=== PATIENT | male | born 1975 | race Caucasian/White ===

== ENCOUNTER → 2016-12-02 | Outpatient (CLI) | payer OTHER ==
[~2016-12-02] MED LIST: ACET-1256 PO; IBUP-1050 PO; MULT-506 PO; OMEP20CA59 PO
[2016-12-02 09:37] LABS: BASO % 0.3 %; BASO ABS # 0.01 K/uL (0-0.2); COMPLETE YES; EOS % 2.1 %; HEMATOCRIT 44.1 % (42-52); LYMPH % 35.4 %; LYMPH ABS # 1.38 K/uL (1.2-3.4); MEAN CELL VOLUME 87.8 fL (80-100); MEAN CORPUSCULAR HEMOGLOBIN 31.9 pg (25-34); MEAN CORPUSCULAR HGB CONC 36.3 g/dl (32-36); MONO % 8.5 %; NEUT % 53.7 %; PLATELET COUNT 177 K/uL (130-400); RED BLOOD COUNT 5.02 M/uL (4.7-6.1)
[2016-12-02 10:12] LABS: CHOLESTEROL/HDL RATIO 2.6
== END | disposition home or self-care (01) ==
LOC: C.LAB 07:19
PROVIDERS: ATTEND Family Medicine
DX: Z13.220 Encounter for screening for lipoid disorders (principal); Z13.1 Encounter for screening for diabetes mellitus; Z13.0 Encounter for screening for diseases of the blood and blood-forming organs and certain disorders involving the immune mechanism

== ENCOUNTER → 2017-08-16 | Day surgery (SDC) | payer OTHER ==
[2017-07-29 09:51] VITALS: BMI 22.0
[~2017-08-16] VITALS: Ht 180.3 cm; Wt 74.1 kg
[~2017-08-16] MED LIST changes: -ACET-1256 PO; -IBUP-1050 PO; +LIDOCAINE HCL 2% 2 ML VIAL (20MG/ML) ONE; +MIDAZOLAM HCL 1 MG/ML 2ML VIAL ONE; +ONDANSETRON INJ 2 MG/ML 2 ML VIAL ONE; +PROPOFOL IV EMULSION 10 MG/ML 20 ML VIAL IV ONE
[2017-08-16 12:17] VITALS: Ht 180.3 cm; Wt 74.1 kg
--- NOTE | 2017-08-16 13:48 | Endo History and Physical ---
History & Physical Date of Service: Aug 16, 2017. Chief Complaint: FAMILY HISTORY POLYPS Referring Physician: History of Present Illness 41 yo CM who presents for colonoscopy secondary to family history of colon polyps. Past Medical History Reflux Past Surgical History Hx Cardiac Surgery: No Hx Internal Defibrillator: No Hx Pacemaker: No Hx Abdominal Surgery: Yes (BLT INGUINAL HERNIA) Hx of Implantable Prosthesis: No Hx Post-Op Nausea and Vomiting: Yes (ONLY WITH WISDOM TEETH EXTRACTION) Hx Cancer Surgery: No Hx Thoracic Surgery: No Hx Orthopedic: Yes (ORIF LT ELBOW) Hx Urinary Tract Surgery: No Family History Colon CA, Polyp Social History Smoking Status: Never Smoker Hx Substance Use: No Hx Alcohol Use: Yes (2 DRINKS/DAY) Allergies Coded Allergies: Penicillins (Verified Allergy, Unknown, HIVES, 08/16/17) Sulfa Drugs (Verified Allergy, Unknown, RASH, 08/16/17) Current Medications Reported Home Medications Medications Dose Route/Sig Max Daily Dose Days Date Category Multivitamin (Multivitamins) Tab 1 Tablet PO DAILY 11/19/12 Reported Prilosec (Omeprazole) 20 Mg Capcr 20 Mg PO QAM 01/31/12 Reported Vital Signs Weight (Kilograms): 74.09 Height (Feet): 5 Height (Inches): 11 Date Time Temp Pulse Resp B/P (MAP) Pulse Ox O2 Delivery O2 Flow Rate FiO2 08/16/17 12:23 36.7 70 18 131/78 (95) 100 Room Air Physical Exam General Appearance: WD/WN, no apparent distress Respiratory/Chest: Auscultation: breath sounds normal Cardiovascular: Heart Auscultation: RRR Abdomen: Bowel Sounds: normal Inspection & Palpation: soft, non-distended, no tenderness, guarding & rebound Assessment and Plan Assessment: 41 yo CM who presents for colonoscopy secondary to family history of colon polyps. Plan: Proceed with colonoscopy.
--- NOTE | 2017-08-16 14:09 | Discharge Instructions ---
Endoscopy Patient Instructions Date / Procedure(s) Performed Aug 16, 2017. Colonoscopy Allergy Information Coded Allergies: Penicillins (Verified Allergy, Unknown, HIVES, 08/16/17) Sulfa Drugs (Verified Allergy, Unknown, RASH, 08/16/17) Discharge Date / Findings Aug 16, 2017. Rectal polyp Medication Instructions OK to resume all medications today as prescribed Reported Home Medications Medications Dose Route/Sig Max Daily Dose Days Date Category Multivitamin (Multivitamins) Tab 1 Tablet PO DAILY 11/19/12 Reported Prilosec (Omeprazole) 20 Mg Capcr 20 Mg PO QAM 01/31/12 Reported Provider Instructions Activity Restrictions - No exercising or heavy lifting for 24 hours. - Do not drink alcohol the day of the procedure. - Do not drive a car or operate machinery until the day after the procedure. - Do not make any important decisions or sign important papers in 24 hours after the procedure. Following Day: - Return to full activity which may include returning to work/school. Diet Start your diet with liquids and light foods (jello, soup, juice, toast). Then eat your usual diet if not nauseated. Treatment For Common After Affects For mild abdominal pain, bloating, or excessive gas: - Rest - Eat lightly - Lie on right side Follow-Up Information Follow-up with as scheduled Anesthesia Information What You Should Know You have had a procedure that required some medicine to reduce anxiety and discomfort. This treatment is called moderate sedation. After receiving the treatment, you may be sleepy, but you will be able to breathe on your own. The effects of the treatment may last for several hours. Follow these instructions along with Activity/Diet recommendations noted above: * Do NOT do anything where dizziness or clumsiness would be dangerous. * Rest quietly at home today, then you can be up and about tomorrow. * Have a responsible person stay with you the rest of today. * You may have had an I.V. today. If so, you may take the dressing off later today. Recommendations Call your doctor if: * Trouble breathing * Continuous vomiting for more than 24 hours * Temperature above 101 degrees * Severe abdominal pain or bloating * Pain not relieved by pain medicine ordered * There is increased drainage or redness from any incision * A large amount of rectal bleeding greater than 2-3 tablespoons. (If you had a polyp/s removed or have hemorrhoids, a small amount of blood - from the rectum is to be expected.) * You have any unanswered questions or concerns. IN THE EVENT OF A SERIOUS EMERGENCY, GO TO THE NEAREST EMERGENCY ROOM Your discharge instructions were prepared by provider Emigdio Palencia. Patient Instructions Signature Page Jonathan Perez Patient (or Guardian) Signature/Date: I have read and understand the instructions given to me by my caregivers. Caregiver/RN/Doctor Signature/Date: The above-named patient and/or guardian has received patient instructions on this date. + Original Patient Signature Page (only) stays with chart. Please make copy for patient.
--- NOTE | 2017-08-16 14:12 | GI REPORT ---
Procedure Date: 08/16/2017 1:16 PM Procedure: Colonoscopy Indications: Family history of colonic polyps in a first-degree relative Medicines: Monitored Anesthesia Care Complications: No immediate complications. Estimated Blood Loss: Estimated blood loss: none. Procedure: Pre-Anesthesia Assessment: - Prior to the procedure, a History and Physical was performed, and patient medications and allergies were reviewed. The patient's tolerance of previous anesthesia was also reviewed. The risks and benefits of the procedure and the sedation options and risks were discussed with the patient. All questions were answered, and informed consent was obtained. Prior Anticoagulants: The patient has taken no previous anticoagulant or antiplatelet agents. ASA Grade Assessment: II - A patient with mild systemic disease. After reviewing the risks and benefits, the patient was deemed in satisfactory condition to undergo the procedure. After I obtained informed consent, the scope was passed under direct vision. Throughout the procedure, the patient's blood pressure, pulse, and oxygen saturations were monitored continuously. The scope was introduced through the anus and advanced to the terminal ileum. The colonoscopy was performed without difficulty. The patient tolerated the procedure well. The quality of the bowel preparation was good. The terminal ileum, ileocecal valve, appendiceal orifice, and rectum were photographed. Findings: The perianal and digital rectal examinations were normal. A 4 mm polyp was found in the rectum. The polyp was sessile. The polyp was removed with a cold snare. Resection and retrieval were complete. Impression: - One 4 mm polyp in the rectum, removed with a cold snare. Resected and retrieved. Recommendation: - Resume previous diet. - Continue present medications. - Repeat colonoscopy for surveillance based on pathology results. - Return to primary care physician as previously scheduled. Emigdio Palencia, 08/16/2017 2:11:43 PM This report has been signed electronically. Note Initiated On: 08/16/2017 1:16 PM I attest to the content of the Intraoperative Record and orders documented therein, exceptions below
[2017-08-16 14:45] VITALS: BP 107/64; PULSE 50; O2SAT 99
--- NOTE | 2017-08-16 14:46 | Anesthesiology Progress Note ---
Anesthesia Post Op Note Date & Time Aug 16, 2017 at 14:46 Vital Signs Vital Signs Past 12 Hours Date Time Temp Pulse Resp B/P (MAP) Pulse Ox O2 Delivery O2 Flow Rate FiO2 08/16/17 14:30 50 16 104/66 (79) 100 Room Air 08/16/17 14:14 59 16 102/60 (74) 98 Room Air 08/16/17 12:23 36.7 70 18 131/78 (95) 100 Room Air Notes Mental Status: alert / awake / arousable, participated in evaluation Pt Amnestic to Procedure: Yes Nausea / Vomiting: adequately controlled Pain: adequately controlled Airway Patency, RR, SpO2: stable & adequate BP & HR: stable & adequate Hydration State: stable & adequate Anesthetic Complications: no major complications apparent
== END | disposition home or self-care (01) ==
LOC: C.GI 12:05
PROVIDERS: ATTEND Internal Medicine
DX: Z12.11 Encounter for screening for malignant neoplasm of colon (principal); Z83.71 Family history of colonic polyps; Z88.0 Allergy status to penicillin; Z88.2 Allergy status to sulfonamides; K62.1 Rectal polyp

== ENCOUNTER → 2017-10-05 | Outpatient (CLI) | payer OTHER ==
[~2017-10-05] MED LIST changes: -LIDOCAINE HCL 2% 2 ML VIAL (20MG/ML) ONE; -MIDAZOLAM HCL 1 MG/ML 2ML VIAL ONE; -ONDANSETRON INJ 2 MG/ML 2 ML VIAL ONE; -PROPOFOL IV EMULSION 10 MG/ML 20 ML VIAL IV ONE
--- NOTE | 2017-10-05 15:00 | DIAGNOSTIC IMAGING REPORT ---
ULTRASOUND RIGHT GROIN NONVASCULAR CLINICAL HISTORY: Lymphadenopathy. COMPARISON STUDY: Abdominal CT dated 11/21/2014. FINDINGS: Real-time, grayscale, and color flow sonography of the right groin is performed. There is no sonographic evidence of right inguinal hernia. No hernia could be elicited by having the patient perform the Valsalva maneuver. There are small benign-appearing right inguinal lymph nodes identified. The largest measures up to 5 mm in short axis. No concerning mass lesion or fluid collection is identified. IMPRESSION: 1. There is no sonographic evidence of right inguinal hernia. 2. Small benign-appearing right inguinal lymph nodes are incidentally noted. Electronically signed by: Caio Pak M.D. 10/05/2017 2:59 PM Dictated Date/Time: 10/05/2017 2:57 PM
== END | disposition home or self-care (01) ==
LOC: C.ULTR 14:12
PROVIDERS: ATTEND Internal Medicine
DX: R59.0 Localized enlarged lymph nodes (principal)

== ENCOUNTER → 2017-12-21 | Outpatient (CLI) | payer OTHER ==
[2017-12-21 09:42] LABS: BASO ABS # 0.04 K/uL (0-0.2); EOS % 1.7 %; EOS ABS # 0.07 K/uL (0-0.5); HEMOGLOBIN 15.2 g/dL (14.0-18.0); IG# 0.01 K/uL (0.00-0.02); LYMPH % 31.1 %; LYMPH ABS # 1.26 K/uL (1.2-3.4); MEAN CELL VOLUME 89.1 fL (80-100); MEAN CORPUSCULAR HEMOGLOBIN 30.8 pg (25-34); MEAN CORPUSCULAR HGB CONC 34.5 g/dl (32-36); MEAN PLATELET VOLUME 10.6 fL (7.4-10.4); MONO % 8.6 %; MONO ABS # 0.35 K/uL (0.11-0.59); NEUT % 57.4 %; NEUT ABS # 2.32 K/uL (1.4-6.5); PLATELET COUNT 209 K/uL (130-400); RED CELL DISTRIBUTION WIDTH CV 13.4 % (11.5-14.5); RED CELL DISTRIBUTION WIDTH SD 43.4 fL (36.4-46.3); WHITE BLOOD COUNT 4.05 K/uL (4.8-10.8)
[2017-12-21 10:17] LABS: BLOOD UREA NITROGEN 17 mg/dl (7-18); CREATININE 1.03 mg/dl (0.60-1.40); GLUCOSE 82 mg/dl (70-99)
[2017-12-21 10:18] LABS: ALBUMIN 4.2 gm/dl (3.4-5.0); ALT/SGPT 46 U/L (12-78); AST/SGOT 40 U/L (15-37); CALCIUM 8.9 mg/dl (8.5-10.1); CARBON DIOXIDE 30 mmol/L (21-32); CHOLESTEROL 174 mg/dl (0-200); SODIUM 140 mmol/L (136-145)
[2017-12-21 10:20] LABS: ALKALINE PHOSPHATASE 64 U/L (45-117); LDL CHOLESTEROL CALCULATED 95 mg/dl; TOTAL PROTEIN 7.4 gm/dl (6.4-8.2)
== END | disposition home or self-care (01) ==
LOC: C.LAB 07:13
PROVIDERS: ATTEND Internal Medicine
DX: Z13.1 Encounter for screening for diabetes mellitus (principal); K63.5 Polyp of colon; Z13.220 Encounter for screening for lipoid disorders

== ENCOUNTER → 2018-01-18 | Outpatient (CLI) | payer OTHER ==
[2018-01-18 09:58] LABS: TOTAL PROTEIN 7.4 gm/dl (6.4-8.2)
== END | disposition home or self-care (01) ==
LOC: C.LAB 07:09
PROVIDERS: ATTEND Internal Medicine
DX: Z13.1 Encounter for screening for diabetes mellitus (principal)

== ENCOUNTER 2024-01-08 19:44 | Observation (INO) ==
--- NOTE | 2024-01-08 20:13 | Emergency Department Note ---
Impression & Plan Chest pain, Acute left-sided back pain, Anticoagulated ED Provider Note NAME: NELSY GA AGE: 48 SEX: Male INFORMANT: Patient ED PROVIDER(S): Jeovany Quiles MD CHIEF COMPLAINT: Chest pain PLAN: Disposition: Admitted Outpatient prescription management: none Referral: None MEDICAL DECISION MAKING: Patient presented because of chest and back pain. History was concerning for upper extremity DVT. Patient to started anticoagulation. IV was established. ECG was performed. CT imaging of the chest ordered. The ECG did not show any ischemia. The CT of the chest with contrast did not reveal any evidence of pulmonary embolus, pneumothorax, or dissection. Patient's CBC and chemistry panels were unremarkable. Cardiac troponin was within normal limits. Patient did request something mild for discomfort and was given a dose of IV Toradol. He is currently doing well and hemodynamically stable. In light of the recent events, symptoms that he had prior and the chest and back pain tonight I discussed the option for further management in the hospital. Patient was comfortable with the plan. Consultation was made with Dr. Norman Diallo of the [facility] service. Patient was evaluated in the ER for further management. Care/management discussed with: dairy department manager Level of care consideration(s): After review of the information above and other included data, I feel the patient requires escalation of care to admission. Triage Nursing notes: reviewed and agree them. Vital Signs: reviewed and remarkable for mild hypertension Additional History obtained from: none Chronic Medical/Social Conditions affecting care: Anticoagulation, DVT Prior/ Outside/ External records reviewed: Prior ED visit records reviewed as summarized below Differential Diagnosis: Cardiac ischemia, aortic dissection, pulmonary embolism, pneumothorax, pneumonia, pericarditis, myocarditis, esophageal rupture, GERD, cholecystitis, pancreatitis, musculoskeletal, as well as other pathologies. Diagnostics, independently interpreted by me: ECG: Twelve-lead ECG reveals a normal sinus rhythm with sinus arrhythmia at 74 bpm. Left axis deviation and right bundle branch block. No ST elevation when compared to 01/04/2024 T wave inversion in V3 is more prominent otherwise no significant change. This T wave inversion morphology was seen in May 2022 Cardiac Monitoring: Cardiac monitoring ordered by me: The patient was placed on continuous cardiac monitoring and observed. It revealed a normal sinus rhythm at 71 beats per minute without ectopy or evidence of dysrhythmia. Medical decision rules: none Imaging studies: CT scan of the chest reveals no pneumothorax or significant pulmonary embolus. I refer you to the EMR for further details. HPI: 48 year old Male arrives for evaluation of chest pain and left-sided back pain. This started early this afternoon, lasted for about 20 minutes, resolved, and then returned this evening. Patient was recently in the emergency department 2 weeks ago for left right leg pain. Ultrasound imaging was negative at that time. He also had a negative Lyme test. Patient attributed the leg discomfort to prolonged sitting and his varicosities. Patient then came back to the emergency department 4 days ago due to swelling and discomfort in the left upper extremity and left neck of which originated from the site where he had an IV. He was diagnosed with a left upper extremity DVT and placed on Eliquis. Today he was going about his normal daily activities and then developed sharp pain in the left upper back. This lasted over half an hour. Patient then started to get chest pain. He denied other associated symptoms. Patient states 2 weeks ago he was sitting for a long time at a track meet. The next day he was developed the pain in the right calf. He also noted having a presyncopal like episode that evening stating that he just did not feel well. Denies any recent flulike symptoms. Pt denies LOC, headache, fevers, chills, diaphoresis, visual changes, neck pain, chest pain, breathing difficulties, nausea, vomiting, abdominal pain, melena, hematochezia, urinary symptoms, numbness, weakness, lymphadenopathy, rash, or other complaints. PAST MEDICAL HISTORY: See Below, hyperlipidemia, GERD, DVT PAST SURGICAL HISTORY: See Below, hernia repair SOCIAL HISTORY: See Below, employed as a nurse. . HOME MEDICATIONS: See Below ALLERGIES: See Below VITALS: See Below PHYSICAL EXAMINATION: GENERAL: Awake, alert, uncomfortable-appearing, in no distress HENT: Normocephalic, atraumatic. Oropharynx unremarkable. EYES: Normal conjunctiva. Sclera non-icteric. NECK: Inspection normal. Non-tender. Supple. No nuchal rigidity. FROM. No masses. RESPIRATORY: Clear to auscultation. No wheezes. No rales. Normal respiratory effort. CARDIAC: Normal rate. Normal rhythm. No murmurs. No rubs. Extremities warm and well perfused. Pulses equal. No JVD. GI: Soft, non-distended. No tenderness to palpation. No rebound or guarding. No masses. RECTAL: Deferred. MUSCULOSKELETAL: Atraumatic. Chest examination reveals no tenderness. The back is symmetrical on inspection without obvious abnormality. There is no CVA tenderness to palpation. No joint edema. LOWER EXTREMITIES: Calves are equal size bilaterally and non-tender. No edema. No discoloration. NEURO: Normal sensorium. No sensory or motor deficits noted. SKIN: No rash or jaundice noted. PROCEDURES: none CRITICAL CARE: none OBSERVATION NOTE: none Past Med/Surg History Medical History History of COVID-19 04/01/22>SYMPTOMS RESOLVED Hyperplastic colon polyp (08/16/17) hx GERD (gastroesophageal reflux disease) Surgical History History of surgery on arm LEFT ULNAR NERVE RELEASE Nausea and vomiting after administration of anesthetic agent History of wisdom tooth extraction History of bilateral inguinal hernia repair History of open reduction and internal fixation (ORIF) procedure Lt elbow History of esophagogastroduodenoscopy (EGD) History of colonoscopy most recent fall 2021 Family History Grandfather (Paternal) Family hx of colon cancer Father Family hx colonic polyps Grandmother Breast cancer Grandfather Diabetes Colorectal cancer Hypertension Other No family history of adverse response to anesthesia Denies family history of Ovarian cancer Prostate cancer Myocardial infarction Social History Smoking Status: Never smoker Second Hand Exposure: No; Do You Dip or Chew Tobacco: No; Hx Alcohol Use: Yes Alcohol type: beer, wine and hard liquor Hx Substance Use: No Preferred Language: Sammarinese Communication Ability: Effective Visual Impairment: No Limitations Hearing Ability: Normal International Guest Coordinator Required: No Beliefs That Will Affect Care: None marital status: Current Living Situation: Spouse Current Living Situation Comment: Lives at home with current occupational status: employed Other Information That Helps Us Care for You: No Feels Safe at Home: Yes Safety Concerns: Feels Safe At This Time Childhood Exposure to Second-Hand Smoke: No Dental Care, Regularly: Yes Physical Activity Frequency: 3-4 Times per Week Seatbelt Use: always Sunscreen Use: Yes Assistive Devices: None Allergies Allergies Allergy/AdvReac Type Severity Reaction Status Date / Time ciprofloxacin Allergy Intermediate Rash Verified 01/08/24 22:01 Penicillins Allergy Intermediate HIVES Verified 01/08/24 22:01 Sulfa (Sulfonamide Allergy Intermediate RASH Verified 01/08/24 22:01 Antibiotics) sulfamethoxazole Allergy Intermediate Rash Verified 01/08/24 22:01 [From Bactrim] trimethoprim [From Bactrim] Allergy Intermediate Rash Verified 01/08/24 22:01 levofloxacin [From Levaquin] AdvReac Intermediate Palpitation Verified 01/08/24 22:01 s Home Meds Home Medications Medication Instructions Recorded Confirmed multivitamin 1 tab PO QPM 10/30/21 01/08/24 famotidine 20 mg tablet (Pepcid) 20 mg PO DAILY PRN 08/26/23 01/08/24 HEARTBURN/INDIGESTION ibuprofen 200 mg tablet 600 mg PO Q6H PRN Pain 01/04/24 01/08/24 Previous Rx's Medication Instructions Recorded lansoprazole 30 mg capsule,delayed 30 mg PO QAM #90 caps 10/25/23 release apixaban 5 mg tablet (Eliquis) See Rx Instructions .Route 01/04/24 .COMPLEX #74 tabs Results & Data (ED) Vital Signs Vital Signs - 24 hr 01/08/24 19:46 01/08/24 19:51 01/08/24 20:00 Temperature 36.6 C Temperature Source Temporal Artery Scan Pulse Rate 84 75 75 Pulse Rate from SpO2 Sensor 74 Respiratory Rate 18 17 Respiratory Effort / Characteristics Non-Labored Respiratory Depth Normal Respiratory Pattern Regular Blood Pressure 156/96 H 134/97 Blood Pressure Mean 116 109 Pulse Oximetry 100 100 Oxygen Delivery Method Room Air Room Air Sepsis Recent Fever Within 48 Hours No Sepsis New/Unexplained Change in Mental Status N/A Sepsis Action Taken by Nursing No Action Required 01/08/24 20:22 01/08/24 21:00 01/08/24 22:00 Temperature Temperature Source Pulse Rate 69 60 56 L Pulse Rate from SpO2 Sensor 68 58 L 57 L Respiratory Rate 13 17 18 Respiratory Effort / Characteristics Respiratory Depth Respiratory Pattern Blood Pressure 131/86 127/81 131/88 Blood Pressure Mean 101 96 102 Pulse Oximetry 100 100 100 Oxygen Delivery Method Room Air Room Air Room Air Sepsis Recent Fever Within 48 Hours Sepsis New/Unexplained Change in Mental Status Sepsis Action Taken by Nursing Laboratory Data 01/08/24 20:02 01/08/24 20:02 Lab Results 01/08/24 Range/Units 20:02 WBC 6.38 (4.8-10.8) K/ul RBC 5.07 (4.70-6.10) M/uL Hgb 15.9 (14.0-18.0) g/dl Hct 44.2 (42.0-52.0) % MCV 87.2 (80.0-100.0) fL MCH 31.4 (25.0-34.0) pg MCHC 36.0 (32.0-36.0) g/dL RDW Std Deviation 39.6 (36.4-46.3) fL RDW Coeff of Chema 12.5 (11.5-14.5) % Plt Count 247 (130-400) K/uL MPV 10.3 (9.4-12.4) fL Immature Gran % (Auto) 0.2 % Neut % (Auto) 67.4 % Lymph % (Auto) 25.2 % Clinton % (Auto) 5.8 % Eos % (Auto) 0.8 % Baso % (Auto) 0.6 % Neut # (Auto) 4.30 (1.40-6.50) K/uL Lymph # (Auto) 1.61 (1.20-3.40) K/uL Clinton # (Auto) 0.37 (0.11-0.59) K/uL Eos # (Auto) 0.05 (0.00-0.50) K/uL Baso # (Auto) 0.04 (0.00-0.20) K/uL Immature Gran # (Auto) 0.01 (0.01-0.20) K/uL PT 11.3 (9.0-12.0) Seconds INR 1.0 (0.9-1.1) APTT 29 (21-31) Seconds PTT Ratio 1.1 Sodium 138 (136-145) mmol/L Potassium 3.7 (3.5-5.1) mmol/L Chloride 102 (98-107) mmol/L Carbon Dioxide 28 (21-32) mmol/L Anion Gap 8 (3-11) BUN 13 (6-23) mg/dl Creatinine 1.02 (0.6-1.4) mg/dl Est Cr Clr Drug Dosing 91.4 ml/min Est GFR ( Amer) 100.3 ml/min Est GFR (Non-Af Amer) 86.5 ml/min BUN/Creatinine Ratio 12.7 (10-20) Glucose 125 H (70-99(Fasting)) mg/dl Calcium 10.3 (8.6-10.3) mg/dl Magnesium 1.8 (1.7-2.4) mg/dl Total Bilirubin 1.3 H (0.2-1.0) mg/dl AST 20 (13-39) U/L ALT 27 (7-52) U/L Alkaline Phosphatase 66 (34-104) U/L Troponin I High Sens 3.4 (0-20) pg/ml Total Protein 7.5 (6.0-8.3) gm/dl Albumin 4.8 (3.4-5.0) gm/dl Globulin 2.7 (2.5-4.0) gm/dl Albumin/Globulin Ratio 1.8 (0.9-2) Lipase 20 (11-82) U/L Administered Medications Sucralfate (Sucralfate 1 Gm Tab) 1 gm PO ACHS MUNIRA Stop: 02/07/24 23:40 Last Admin: 01/08/24 23:57 Dose: 1 gm Documented By: TAMIKO Discontinued Medications Aspirin (Aspirin Chew 324 Mg) 324 mg PO NOW STA Stop: 01/08/24 21:33 Last Admin: 01/08/24 21:39 Dose: 324 mg Documented By: VINNY Ioversol (Optiray 320 125ml) 115 ml IV ONCE ONE Stop: 01/08/24 20:19 Last Admin: 01/08/24 20:19 Dose: 115 ml Documented By: NELSON Ketorolac Tromethamine (Ketorolac Tromethamine 15 Mg/Ml Vial) 10 mg IV NOW ONE Stop: 01/08/24 21:09 Last Admin: 01/08/24 21:11 Dose: 10 mg Documented By: VINNY Imaging Data Radiologist's Impression: Chest CTA 01/08/24 20:03 CT angio chest PE protocol CLINICAL HISTORY: chest and left back pain, recent LUE DVT by US,?PE TECHNIQUE: Multidetector row helical CT of the chest was performed with angiographic protocol. Coronal and sagittal reformations were obtained. Coronal and sagittal MIPS were obtained from the axial data set and were submitted for review. Automated dose lowering techniques and/or adjustment according to patient size were utilized for this exam. CT DOSE: 518.2 mGy.cm Comparison: Comparison is made to CT chest 07/14/2009 FINDINGS: Lungs and pleura: Normal. Heart and pericardium: Heart size is normal. No pericardial effusion. Vessels: No evidence of pulmonary embolism. Mediastinum and juli: Unremarkable. Chest wall and lower neck: Gynecomastia is noted bilaterally. Abdomen: Unremarkable. Bones: Degenerative changes in the thoracic spine. IMPRESSION: No acute abnormality and in particular no evidence of pulmonary embolus. ACT 112: Negative or not required by law. Electronically signed by: Marty Layton M.D. 01/08/2024 8:30 PM Discharge Plan Visit Data Chief Complaint: Chest Pain Stated Complaint: CHEST AND BACK PAIN ED Provider: Jeovany Quiles Discharge Problem: Chest pain, Acute left-sided back pain, Anticoagulated Patient Disposition: Admitted As Inpatient Discharge Instructions Interventions: ED Discharge Assessment Last Done: 01/08/24 23:23
[2024-01-08] MEDS: OPTIRAY 320 125ml IV ONE (20:19)
[2024-01-08 20:28] LABS: Basophils # (auto) 0.04 K/uL (0.00-0.20); Basophils % (auto) 0.6 %; Eosinophils # (auto) 0.05 K/uL (0.00-0.50); Eosinophils % (auto) 0.8 %; Hematocrit (blood only) 44.2 % (42.0-52.0); Hemoglobin 15.9 g/dl (14.0-18.0); Immature Granulocytes # (auto) 0.01 K/uL (0.01-0.20); Immature Granulocytes % (auto) 0.2 %; Lymphocytes # (auto) 1.61 K/uL (1.20-3.40); Lymphocytes % (auto) 25.2 %; Mean Corpuscular Hemoglobin 31.4 pg (25.0-34.0); Mean Corpuscular Volume 87.2 fL (80.0-100.0); Mean Platelet Volume 10.3 fL (9.4-12.4); Monocytes # (auto) 0.37 K/uL (0.11-0.59); Monocytes % (auto) 5.8 %; Neutrophils % (auto) 67.4 %; Platelet Count 247 K/uL (130-400); RDW Coefficient of Variation 12.5 % (11.5-14.5); RDW Standard Deviation 39.6 fL (36.4-46.3); Red Blood Count 5.07 M/uL (4.70-6.10); White Blood Count 6.38 K/ul (4.8-10.8)
[2024-01-08 20:30] LABS: Partial Thromboplastin Ratio 1.1; Partial Thromboplastin Time 29 Seconds (21-31); Prothrombin Time 11.3 Seconds (9.0-12.0)
--- NOTE | 2024-01-08 20:32 | CT Scan Report ---
CT angio chest PE protocol CLINICAL HISTORY: chest and left back pain, recent LUE DVT by US,?PE TECHNIQUE: Multidetector row helical CT of the chest was performed with angiographic protocol. Moise l and sagittal reformations were obtained. Coronal and sagittal MIPS were obtained from the axial jyoti a set and were submitted for review. Automated dose lowering techniques and/or adjustment according to patient size were utilized for this exam. CT DOSE: 518.2 mGy.cm Comparison: Comparison is made to CT chest 07/14/2009 FINDINGS: Lungs and pleura: Normal. Heart and pericardium: Heart size is normal. No pericardial effusion. Vessels: No evidence of pulmonary embolism. Mediastinum and juli: Unremarkable. Chest wall and lower neck: Gynecomastia is noted bilaterally. Abdomen: Unremarkable. Bones: Degenerative changes in the thoracic spine. IMPRESSION: No acute abnormality and in particular no evidence of pulmonary embolus. ACT 112: Negative or not required by law. Electronically signed by: Marty Layton M.D. 01/08/2024 8:30 PM
[2024-01-08 20:42] LABS: Albumin Globulin Ratio 1.8 (0.9-2); Albumin Level 4.8 gm/dl (3.4-5.0); BUN Creatinine Ratio 12.7 (10-20); Bilirubin,Total 1.3 mg/dl (0.2-1.0); Calcium 10.3 mg/dl (8.6-10.3); Creatinine Clr Calc Pharmacy 91.4 ml/min; Est GFR (African American) 100.3 ml/min; Est GFR (Non-African American) 86.5 ml/min; Globulin 2.7 gm/dl (2.5-4.0); Potassium 3.7 mmol/L (3.5-5.1); Total Protein 7.5 gm/dl (6.0-8.3)
[2024-01-08 20:48] LABS: Troponin I High Sensitivity 3.4 pg/ml (0-20)
[2024-01-08] MEDS: KETOROLAC TROMETHAMINE 15 MG/ML VIAL IV ONE (21:11)
[2024-01-08] MEDS: ASPIRIN CHEW 324 MG PO STA (21:39)
--- NOTE | 2024-01-08 22:11 | History & Physical Report ---
"Date of Service January 08, 2024 Assessment & Plan (1) Acute left-sided back pain: (2) Chest pain: (3) DVT (deep venous thrombosis): (4) GERD (gastroesophageal reflux disease): (5) Anticoagulated: (6) Pre-syncope: Plan Chest Pain | Current Left UE DVT -New onset chest pain and left sided upper back pain -Hemodynamically stable, no chest pain at present after receiving Toradol -Troponin of 3.4 on arrival, will order one additional repeat troponin -CTA chest reassuring, no evidence of PE. EKG without acute ST abnormalities. -Considering several recent episodes of presyncope, will order echocardiogram -Ideally would obtain stress echo, however may not be available on the weekend -Continue with Eliquis for UE DVT. No prior DVTs, but due to IV placement and subsequent pain in same arm prior to DVT could be secondary to trauma from venous access. -Fortunately workup at this time is reassuring and suspect that his presenting chest pain/back pain may not be cardiac in nature -Admit for observation and monitor on telemetry -Will repeat CBC, BMP, magnesium level in a.m. Gastroesophageal Reflux -Continue PPI and famotidine PRN -Will restart Carafate -With his history of ongoing GERD leading to esophagitis, could consider referr ed pain from gastritis as possible factor in his presenting symptoms Admit to telemetry for observation VTE Prophylaxis: Eliquis Diet: Regular Code Status: Full Code History of Present Illness Primary Care Provider: Shan Ward DO Jonathan Perez is a 48 year-old male with a past medical history of GERD, hyperlipidemia, varicose veins who presented to the ED for chest pain. He was seen in the ED on 12/24 for lower extremity pain- he endorses that he will have some LE/calf pain at baseline due to his varicose veins although this pain seemed worse/lasted longer which was what prompted his visit to the ED. Venous duplex on 12/24 was negative for lower extremity DVT. Over one week later, Mr. Perez presented back to the ED (January 03) for ongoing left arm pain and UE swelling after having an IV placed in the same arm at his prior ED visit. During this visit, he had a venous duplex of his left upper extremity which did identify a DVT and he was started on anticoagulation with Eliquis. Since January 03, he has been taking Eliquis as prescribed. Today, January 07, Mr. Perez started experiencing some sharp upper back pain/between his shoulder blades around noon which eventually went away. Several hours later he began to experience sharp centralized chest pain which radiated to his back in the same location as before. However this pain did not go away and he decided to go to the ED. He denies any shortness of breath in association with the chest pain. He endorses several episodes of presyncope in the past several weeks, but has not had any syncopal events. He has no reported blood clots prior to his current DVT. Mr. Perez has a longstanding history of GERD and most recently had an EGD in July 2023 which showed evidence of gastritis/esophagitis. He reports being on PPIs for 10+ years, is currently on lansoprazole and famotidine PRN. He was tapered off of Carafate in August. No other recent changes reported to his home medications. ED Course: -CTA chest -EKG, troponin, CBC, CMP Allergies Allergy/AdvReac Type Severity Reaction Status Date / Time ciprofloxacin Allergy Intermediate Rash Verified 01/08/24 22:01 Penicillins Allergy Intermediate HIVES Verified 01/08/24 22:01 Sulfa (Sulfonamide Allergy Intermediate RASH Verified 01/08/24 22:01 Antibiotics) sulfamethoxazole Allergy Intermediate Rash Verified 01/08/24 22:01 [From Bactrim] trimethoprim [From Bactrim] Allergy Intermediate Rash Verified 01/08/24 22:01 levofloxacin [From Levaquin] AdvReac Intermediate Palpitation Verified 01/08/24 22:01 s Home Medications Medication Instructions Recorded Confirmed Type multivitamin 1 tab PO QPM 10/30/21 01/08/24 History famotidine 20 mg tablet (Pepcid) 20 mg PO DAILY PRN 08/26/23 01/08/24 History HEARTBURN/INDIGESTION lansoprazole 30 mg capsule,delayed 30 mg PO QAM #90 caps 10/25/23 01/08/24 Rx release apixaban 5 mg tablet (Eliquis) See Rx Instructions .Route 01/04/24 01/08/24 Rx .COMPLEX #74 tabs ibuprofen 200 mg tablet 600 mg PO Q6H PRN Pain 01/04/24 01/08/24 History Past Med/Surg History Medical History History of COVID-19 04/01/22>SYMPTOMS RESOLVED Hyperplastic colon polyp (08/16/17) hx GERD (gastroesophageal reflux disease) Surgical History History of surgery on arm LEFT ULNAR NERVE RELEASE Nausea and vomiting after administration of anesthetic agent History of wisdom tooth extraction History of bilateral inguinal hernia repair History of open reduction and internal fixation (ORIF) procedure Lt elbow History of esophagogastroduodenoscopy (EGD) History of colonoscopy most recent fall 2021 Family History Grandfather (Paternal) Family hx of colon cancer Father Family hx colonic polyps Grandmother Breast cancer Grandfather Diabetes Colorectal cancer Hypertension Other No family history of adverse response to anesthesia Denies family history of Ovarian cancer Prostate cancer Myocardial infarction Social History Smoking Status: Never smoker Second Hand Exposure: No; Do You Dip or Chew Tobacco: No; Hx Alcohol Use: Yes Alcohol type: beer, wine and hard liquor Hx Substance Use: No Preferred Language: Vietnamese Communication Ability: Effective Visual Impairment: No Limitations Hearing Ability: Normal 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 Beliefs That Will Affect Care: None marital status: Current Living Situation: Spouse Current Living Situation Comment: Lives at home with current occupational status: employed Other Information That Helps Us Care for You: No Feels Safe at Home: Yes Safety Concerns: Feels Safe At This Time Childhood Exposure to Second-Hand Smoke: No Dental Care, Regularly: Yes Physical Activity Frequency: 3-4 Times per Week Seatbelt Use: always Sunscreen Use: Yes Assistive Devices: None Review of Systems Review of Systems: As per above Physical Exam Constitutional: WD/WN, vitals as above Eyes: + anicteric sclerae; no conjunctival abn ormality ENMT: Ears: no external ear abnormality Nose: no external nose abnormality Moist mucous membranes Respiratory: normal respiratory effort, lungs clear to auscultation Cardiovascular: Rate/Rhythm: regular rate and regular rhythm Extremities: no edema (wearing compression stockings on bilateral lower extremities) Gastrointestinal (Abdomen): Inspection/Auscultation: abdomen not distended Percussion/Palpation: abdomen soft; abdomen nontender and no guarding Musculoskeletal: Moves all limbs independently. No reproducible pain with palpation of chest or thoracic spine. Skin: no rashes, warm and dry Neurologic: no focal motor deficits Psychiatric: A+Ox3, euthymic affect Results & Data Results & Data Vital Signs (Past 12 Hours) Vital Signs Temp Pulse Resp BP Pulse Ox O2 Del Method 01/08/24 22:00 56 L 18 131/88 100 Room Air 01/08/24 21:00 60 17 127/81 100 Room Air 01/08/24 20:22 69 13 131/86 100 Room Air 01/08/24 20:00 75 17 134/97 100 Room Air 01/08/24 19:46 36.6 C 84 18 156/96 H 100 Room Air Diagnostic Findings Chest CTA 01/08/24 20:03 CT angio chest PE protocol CLINICAL HISTORY: chest and left back pain, recent LUE DVT by US,?PE TECHNIQUE: Multidetector row helical CT of the chest was performed with angiographic protocol. Coronal and sagittal reformations were obtained. Coronal and sagittal MIPS were obtained from the axial data set and were submitted for review. Automated dose lowering techniques and/or adjustment according to patient size were utilized for this exam. CT DOSE: 518.2 mGy.cm Comparison: Comparison is made to CT chest 07/14/2009 FINDINGS: Lungs and pleura: Normal. Heart and pericardium: Heart size is normal. No pericardial effusion. Vessels: No evidence of pulmonary embolism. Mediastinum and juli: Unremarkable. Chest wall and lower neck: Gynecomastia is noted bilaterally. Abdomen: Unremarkable. Bones: Degenerative changes in the thoracic spine. IMPRESSION: No acute abnormality and in particular no evidence of pulmonary embolus. ACT 112: Negative or not required by law. Electronically signed by: Marty Layton M.D. 01/08/2024 8:30 PM Supervising Physician Co-Signing Physician Notes Attending addendum: I have physically seen this patient, have supervised the medical residents activities, and agree with the H&P unless as otherwise noted. Assessment and Plan: Chest pain- Acute onset of significant left-sided chest pain radiating through to the back earlier in the day today Recurrent episodes today The patient will be admitted to telemetry for serial cardiac enzymes, serial EKG's, cardiac rhythm monitoring and a 2-D echocardiogram with Dopplers. CTA PE protocol negative for PE Potassium 3.7, optimized to 4.0 Check magnesium level EKG with chronic right bundle branch block Erosive gastritis/esophagitis/GERD- His previous maximal therapy had been Prevacid 30 mg daily, famotidine 20 mg twice daily and Carafate. More recently has been only on Prevacid Would increase Prevacid to 30 mg p.o. twice daily, and consider the addition of Carafate His symptoms above may in fact be secondary to severe GI issues Most recent EGD performed on 08/27/2023 Will follow-up with GI Dr. Case Avoid NSAIDs Left upper extremity DVT- Associated with placement of an IV Finish Eliquis dosing Will discuss with his family whether there is any history of clots, and if so, would recommend hypercoagulable workup Resident Activity Tracking Resident Involvement: Resident Care Provided Care Provided: Adult Hospital Medicine (3) DVT (deep venous thrombosis) Affected thrombotic vein of extremity: unspecified vein of extremity Chronicity: acute DVT location: upper extremity Laterality: unspecified laterality Qualified Code(s): I82.629 - Acute embolism and thrombosis of deep veins of unspecified upper extremity"
[2024-01-08] MEDS ORDERED: POLYETHYLENE (MIRALAX) 17 GM PACK PO PRN (23:41)
[2024-01-08] MEDS ORDERED: ONDANSETRON INJ 2 MG/ML 2 ML VIAL IV PRN (23:41)
[2024-01-08] MEDS ORDERED: MoRPHine SULFATE 2 MG/ML CARP IV PRN (23:41)
[2024-01-08 23:51] LABS: Magnesium 1.8 mg/dl (1.7-2.4)
[2024-01-08] MEDS: SUCRALFATE 1 GM TAB PO SCH (23:57)
--- NOTE | 2024-01-09 07:17 | Electrocardiogram Report ---
Test Reason : Blood Pressure : / mmHG Vent. Rate : 074 BPM Atrial Rate : 074 BPM P-R Int : 140 ms QRS Dur : 138 ms QT Int : 416 ms P-R-T Axes : 067 -31 012 degrees QTc Int : 461 ms Normal sinus rhythm with sinus arrhythmia Left axis deviation Right bundle branch block Abnormal ECG When compared with ECG of 04-JAN-2024 03:05, No significant change was found Confirmed by Mata Burgos ([id number]) on 01/09/2024 7:16:58 AM Referred By: NO PCP Confirmed By:Vaughn Burgos
[2024-01-09] MEDS: APIXABAN 5 MG TABLET PO SCH (07:59)
[2024-01-09] MEDS: PANTOprazole 40 MG TAB PO SCH (07:59)
--- NOTE | 2024-01-09 09:54 | XCELERA ---
[id number] \\[id number]
--- NOTE | 2024-01-09 12:46 | Hospitalist Progress Note ---
"Date of Service January 09, 2024 Assessment & Plan (1) Chest pain: Plan: Chest Pain | Current Left UE DVT -New onset chest pain and left sided upper back pain -resolved -troponin negative x 2 -CTA chest , no evidence of PE. EKG without acute ST abnormalities. -echocardiogram negative for RWMA normal EF -01/10/24 stress echo, (2) DVT (deep venous thrombosis): Plan: -Continue with Eliquis for UE DVT. will order factor 5 and prothrombin (3) GERD (gastroesophageal reflux disease): Plan: Continue PPI and famotidine PRN -Will restart Carafate -With his history of ongoing GERD leading to esophagitis, could consider referred pain from gastritis as possible factor in his presenting symptoms Plan VTE Prophylaxis: Eliquis Code Status: Full Code Admission and Anticipated Discharge Date Admission Date: January 08, 2024 Subjective pt has resolution of presenting symptoms has concern regarding this being anginal equivalent relieved that no PE on CTA at bedside and updated Physical Exam Physical Exam: awake and alert cardiac is regular, no murmurs lungs are clear no reproducible pain left arm without swelling or palpable chords Results & Data Results & Data Vital Signs (Past 12 Hours) Vital Signs Temp Pulse Pulse Resp BP Pulse Ox O2 Del Method 01/09/24 08:00 97.5 F L 60 16 120/74 Room Air 01/09/24 07:29 61 01/09/24 02:33 97.7 F 59 L 18 146/83 H 99 Room Air Laboratory Results reviewed cbc, reviewed troponin reviewed and relayed Echo results PG Care Time/CCT Total # of Minutes Spent Total Time Spent with Patient: Total time spent is greater than 50% in coordination of care (as documented) at patient's floor/unit and/or counseling patient: Coding Level of Care Code 08756 SUB INP/OBS CARE 2/35MIN Diagnoses Chest pain R07.9 DVT (deep venous thrombosis) I82.629 Affected thrombotic vein of extremity: unspecified vein of extremity Chronicity: acute DVT location: upper extremity Laterality: unspecified laterality GERD (gastroesophageal reflux disease) K21.9 (2) DVT (deep venous thrombosis) Affected thrombotic vein of extremity: unspecified vein of extremity Chronicity: acute DVT location: upper extremity Laterality: unspecified lat erality Qualified Code(s): I82.629 - Acute embolism and thrombosis of deep veins of unspecified upper extremity"
[2024-01-09] MEDS: FAMOTIDINE 20 MG TAB PO PRN (14:55)
[2024-01-09] MEDS: ALUMINUM/MAGNESIUM SUSP 30 ML UDC PO PRN (14:55)
--- NOTE | 2024-01-09 19:42 | Billing Data ---
Date of Service January 09, 2024 Coding Level of Care Code 11310 INT INP/OBS CARE
[2024-01-09] MEDS: ACETAMINOPHEN 325 MG TAB PO PRN (20:35)
--- NOTE | 2024-01-10 15:35 | XCELERA ---
[id number]
--- NOTE | 2024-01-10 17:57 | Discharge Summary ---
"Discharge Summary Date of Service January 10, 2024 Notes For Next Care Provider Patient had negative stress test and CT angiography. Certainly symptoms could come from GERD related issues but he is well treated and follows up for this. Due to his provoked upper extremity DVT a factor V Leiden and prothrombin gene mutation lab was send these are pending at time of discharge Medication Changes From Visit None Admission HPI Per Admitting Provider Jonathan Perez is a 48 year-old male with a past medical history of GERD, hyperlipidemia, varicose veins who presented to the ED for chest pain. He was seen in the ED on 12/24 for lower extremity pain- he endorses that he will have some LE/calf pain at baseline due to his varicose veins although this pain seemed worse/lasted longer which was what prompted his visit to the ED. Venous duplex on 12/24 was negative for lower extremity DVT. Over one week later, Mr. Perez presented back to the ED (January 03) for ongoing left arm pain and UE swelling after having an IV placed in the same arm at his prior ED visit. During this visit, he had a venous duplex of his left upper extremity which did identify a DVT and he was started on anticoagulation with Eliquis. Since January 03, he has been taking Eliquis as prescribed. Today, January 07, Mr. Perez started experiencing some sharp upper back pain/between his shoulder blades around noon which eventually went away. Several hours later he began to experience sharp centralized chest pain which radiated to his back in the same location as before. However this pain did not go away and he decided to go to the ED. He denies any shortness of breath in association with the chest pain. He endorses several episodes of presyncope in the past several weeks, but has not had any syncopal events. He has no reported blood clots prior to his current DVT. Mr. Perez has a longstanding history of GERD and most recently had an EGD in July 2023 which showed evidence of gastritis/esophagitis. He reports being on PPIs for 10+ years, is currently on lansoprazole and famotidine PRN. He was tapered off of Carafate in August. No other recent changes reported to his home medications. ED Course: -CTA chest -EKG, troponin, CBC, CMP Principal Dx & Hospital Course #1 = Principal Diagnosis (1) Chest pain: Chest Pain | Current Left UE DVT -New onset chest pain and left sided upper back pain -resolved -troponin negative x 2 -CTA chest , no evidence of PE. EKG without acute ST abnormalities. -echocardiogram negative for RWMA normal EF -01/10/24 stress echo, negative for inducible signs of ischemia or clinical signs of angina (2) DVT (deep venous thrombosis): -Continue with Eliquis for UE DVT. will order factor 5 and prothrombin pending at time of discharge (3) GERD (gastroesophageal reflux disease): Continue outpatient treatment for GERD with surveillance endoscopies -With his history of ongoing GERD leading to esophagitis, could consider referred pain from gastritis as possible factor in his presenting symptoms Plan Code Status: Full Code Discharge Exam Awake alert appropriate no complaints or problems left arm is without edema Updated Medication List Medication Instructions Recorded Confirmed Type multivitamin 1 tab PO QPM 10/30/21 01/08/24 History famotidine 20 mg tablet (Pepcid) 20 mg PO DAILY PRN 08/26/23 01/08/24 History HEARTBURN/INDIGESTION lansoprazole 30 mg capsule,delayed 30 mg PO QAM #90 caps 10/25/23 01/08/24 Rx release apixaban 5 mg tablet (Eliquis) See Rx Instructions .Route 01/04/24 01/08/24 Rx .COMPLEX #74 tabs ibuprofen 200 mg tablet 600 mg PO Q6H PRN Pain 01/04/24 01/08/24 History Hospital Stay Data Consultations 01/08/24 21:39 ED Decision to Admit Stat Diagnostic Imagining Performed 01/08/24 20:03 CT for pulmonary embolism PE [CT angio chest PE protocol] Stat Pending Results Patient Have Any Pending Studies at Discharge: Yes Discharge Instructions Given to Patient (Per Discharging Provider) please follow up with your primary care continue your antigcoagulation Total Time Total Time Spent Total Time Spent (In Minutes): It required less than 30 minutes to prepare this patient for discharge. Coding Level of Care Code 54464 IN/OBS DISCH 30 MIN/LESS Diagnoses Chest pain R07.9 DVT (deep venous thrombosis) I82.629 Affected thrombotic vein of extremity: unspecified vein of extremity Chronicity: acute DVT location: upper extremity Laterality: unspecified laterality GERD (gastroesophageal reflux disease) K21.9"
== END 2024-01-10 11:45 | disposition home or self-care (01) ==
LOC: 2S 19:44 → ED 19:44 → SUATTDRO 23:02 → 2S 23:23